=== PATIENT | male | born 1950 | race Caucasian/White ===

== ENCOUNTER 2018-04-27 09:42 | Emergency (ER) | payer MEDICARE, OTHER ==
[2018-04-27 09:51] VITALS: BP 147/79; PULSE 62; TEMP 97.7; BMI 26.4
--- NOTE | 2018-04-27 10:14 | PDOC ---
History of Present Illness - General Chief Complaint: Blood Pressure Problem Stated Complaint: ELEVATED BP Time Seen by Provider: 04/27/18 10:10 History Source: Patient, Spouse Exam Limitations: Clinical Condition - History of Present Illness Initial Comments: 04/27/18 10:16 Patient present with complains of persistent elevated blood pressures despite started on metroprolol XL HTN meds by PCP 3 days ago. Patient report home BP check readings of 170s/90s and feels medication is not working for him. Patient report he went to [facility] ED in [place] last night with elevated BPs of 160s/ 90s whiles in ED but left because he waited over 6 hrs and was not given any medication to lower blood pressure. BPs here is 149/80s. Denies TORRES, dizziness, blurry vision Timing/Duration: intermittent Severity: moderate Modifying Factors: worse with: medication Associated Symptoms: denies: chest pain, headaches, syncope Aspirin Received prior to arrival: Yes: no aspirin today Past History - Past Medical History Allergies/Adverse Reactions: Allergies Allergy/AdvReac Type Severity Reaction Status Date / Time No Known Allergies Allergy Verified 04/27/18 09:50 Home Medications: Ambulatory Orders Labetalol HCl [Normodyne -] 200 mg PO BID #60 tablet 04/27/18 Magnesium Oxide 400 mg PO DAILY 04/27/18 - Suicide/Smoking/Psychosocial Hx Smoking History: Never smoked Have you smoked in the past 12 months: No Information on smoking cessation initiated: No Hx Alcohol Use: No Drug/Substance Use Hx: No Review of Systems - Review of Systems Able to Perform ROS?: Yes Is the patient limited Swedish proficient: No Constitutional: No: Chills, Diaphoresis, Fever, Loss of Appetite, Malaise, Night Sweats, Weakness, Weight Stable, Unintentional Wgt. Loss, Unexplained wgt Loss, Other HEENTM: No: Eye Pain, Blurred Vision, Tearing, Recent change in vision, Double Vision, Cataracts, Ear Pain, Ocular Prothesis, Ear Discharge, Nose Pain, Nose Congestion, Tinnitus, Nose Bleeding, Hearing Loss, Throat Pain, Throat Swelling , Mouth Pain, Dental Problems, Difficulty Swallowing, Mouth Swelling, Other Respiratory: No: Cough, Orthopnea, Shortness of Breath, SOB with Exertion, SOB at Rest, Stridor, Wheezing, Productive cough, Hemoptysis, Other Cardiac (ROS): Yes: See HPI, Other (elevated Blood pressure ). No: Chest Pain, Edema, Irregular Heart Rate, Lightheadedness, Palpitations, Syncope, Chest Tightness ABD/GI: No: Abdominal Distended, Abd. Pain w/ defecation, Blood Streaked Bowels , Constipated, Diarrhea, Difficulty Swallowing, Nausea, Poor Appetite, Poor Fluid Intake, Rectal Bleeding, Vomiting, Indigestion, Abdominal cramping, Tarry Stools, Other : No: Burning, Dysuria, Discharge, Frequency, Flank Pain, Hematuria, Incontinence, Pain, Urgency, Testicular Mass, Testicular Swelling, Lesions, Testicular Pain, Other Musculoskeletal: No: Back Pain, Gout, Joint Pain, Joint Swelling, Muscle Pain, Muscle Weakness, Neck Pain, Joint Stiffness, Other Integumentary: No: Bruising, Change in Color, Change in Hair/Nails, Dryness, Erythema, Flushing, Lesions, Lumps, Pallor, Pruritus, Rash, Sweating, Other Neurological: No: Headache, Numbness, Paresthesia, Pre-Existing Deficit, Seizure , Tingling, Tremors, Weakness, Unsteady Gait, Ataxia, Dizziness, Other Psychiatric: No: Anxiety, Depression, Frequent Crying, Stressors, Sleep Pattern Change, Emotional Problems, Mood Swings, Change in Appetite, Other Endocrine: No: Excessive Sweating, Flushing, Intolerance to Cold, Intolerance to Heat, Increased Hunger, Increased Thirst, Increased Urine, Unexplained Weight Gain, Unexplained Weight Loss, Change in Weight, Other Hematologic/Lymphatic: No: Anemia, Blood Clots, Easy Bleeding, Easy Bruising, Bleeding Diathesis, Lymph Node Abnormalities, Swollen Glands, Other All Other Systems: Reviewed and Negative *Physical Exam - Vital Signs Last Vital Signs Temp Pulse Resp BP Pulse Ox 97.7 F 62 18 147/79 97 04/27/18 09:43 04/27/18 09:43 04/27/18 09:43 04/27/18 09:43 04/27/18 09:43 - Physical Exam General Appearance: Yes: Nourished, Appropriately Dressed. No: Apparent Distress HEENT: positive: Normal ENT Inspection, Normal Voice, TMs Normal Neck: positive: Trachea midline, Normal Thyroid, Supple Respiratory/Chest: positive: Lungs Clear, Normal Breath Sounds. negative: Chest Tender, Respiratory Distress, Accessory Muscle Use Cardiovascular: positive: Regular Rhythm, Regular Rate, S1, S2. negative: Murmur Gastrointestinal/Abdominal: positive: Normal Bowel Sounds Musculoskeletal: positive: Normal Inspection Extremity: positive: Normal Capillary Refill, Normal Inspection Neurologic: positive: Fully Oriented, Alert, Normal Mood/Affect, Normal Response Medical Decision Making - Medical Decision Making 04/27/18 10:10 Patient present with complains of elevated Bps not responding to prescribed metroprolol XL medication by PCP for HTN. will change HTN meds to labetalol BID with PCP follow-up *DC/Admit/Observation/Transfer Diagnosis at time of Disposition: Essential (primary) hypertension - Discharge Dispostion Disposition: HOME Condition at time of disposition: Good Decision to Admit order: No - Prescriptions Prescriptions: Labetalol HCl [Normodyne -] 200 mg PO BID #60 tablet - Referrals Referrals: Qamar Ryan MD [Primary Care Provider] - - Patient Instructions Printed Discharge Instructions: DI for High Blood Pressure, How to Monitor Your Blood Pressure at Home Additional Instructions: stop metroprolol and take new prescribed blood pressure meds. Follow-up with PCP in a week to reassess blood pressure - Post Discharge Activity
== END 2018-04-27 10:18 | disposition home or self-care (01) ==
LOC: JERFT 09:42
DX: I10 Essential (primary) hypertension (principal)
CPT/HCPCS: 99281-25